=== PATIENT | female | born 1945 | race Caucasian/White ===

== ENCOUNTER 2017-07-25 09:15 | Day surgery (SDC) | payer OTHER ==
[~2017-07-25] VITALS: Ht 162.6 cm; Wt 72.6 kg
[2017-07-25] MEDS ORDERED: CEFAZOLIN SOD 1 GM in D5W 50 ML IV ONE (10:45)
[2017-07-25] MEDS ORDERED: MIDAZOLAM HCL 5 MG/5 ML VIAL IVP ONE (13:30)
[2017-07-25] MEDS ORDERED: LR 1,000 ML IV.SOLN IV ONE (13:30)
[2017-07-25] MEDS ORDERED: NS IRRIG SOLN 1000 ML IR ONE (13:30)
[2017-07-25] MEDS ORDERED: ISOSULFAN BLUE 5 ML VIAL (LYMPHAZURIN) INJ ONE (13:30)
[2017-07-25] MEDS ORDERED: ROCURONIUM BROMIDE 10 MG/ML (ZEMURON) IV ONE (13:30)
[2017-07-25] MEDS ORDERED: ONDANSETRON HCL 4 MG/2 ML VIAL IVP ONE (13:30)
[2017-07-25] MEDS ORDERED: fentaNYL CITRATE 250 MCG/5 ML AMP IV ONE (13:30)
[2017-07-25] MEDS ORDERED: SEVOFLURANE 15 MIN GAS INH ONE (13:30)
[2017-07-25] MEDS ORDERED: PROPOFOL 200MG/ 20ML VIAL (DIPRIVAN) IV ONE (13:30)
[2017-07-25] MEDS ORDERED: BUPIVACAINE /PF 0.25% 30 ML VIAL INJ ONE (13:30)
[2017-07-25] MEDS ORDERED: DEXAMETHASONE SOD PHOSPHATE 4 MG/ML VIAL IVP ONE (13:30)
[2017-07-25] MEDS ORDERED: CEFAZOLIN 2 GM IVPB PREMIX 50 ML IV ONE (13:30)
[2017-07-25] MEDS ORDERED: KETOROLAC TROMETHAMINE 15 MG VIAL IVP ONE (13:30)
[2017-07-25] MEDS ORDERED: LR 1,000 ML IV SCH (14:27)
[2017-07-25] MEDS ORDERED: MEPERIDINE HCL/PF 25 MG/ML DISP.SYRIN IVP PRN (14:30)
[2017-07-25] MEDS ORDERED: HYDROmorphone 2 MG/ML VIAL IVP PRN ×2 (14:30)
[2017-07-25] MEDS ORDERED: HYDROmorphone 1 MG INJ. 1 MG/ML AMPUL IVP PRN ×2 (14:30→15:00)
[2017-07-25] MEDS ORDERED: D5/0.45 NS 1,000 ML IV SCH (14:55)
[2017-07-25] MEDS ORDERED: HYDROcodone/ACETAMIN 5-325 MG TAB (NORCO/ VICODIN) PO PRN ×2 (15:00)
[2017-07-25 16:19] VITALS: BP_SYST 124
== END 2017-07-25 16:50 | disposition home or self-care (01) ==
LOC: SDS 09:15 → EDSTATUS 13:05 → SDS 16:50
PROVIDERS: ATTEND Colon & Rectal Surgery
DX: L57.0 Actinic keratosis (principal); D36.0 Benign neoplasm of lymph nodes; K21.9 Gastro-esophageal reflux disease without esophagitis; M19.90 Unspecified osteoarthritis, unspecified site; E03.9 Hypothyroidism, unspecified; E78.00 Pure hypercholesterolemia, unspecified; D64.9 Anemia, unspecified; C44.310 Basal cell carcinoma of skin of unspecified parts of face; F41.8 Other specified anxiety disorders; I12.9 Hypertensive chronic kidney disease with stage 1 through stage 4 chronic kidney disease, or unspecified chronic kidney disease; N18.3 Chronic kidney disease, stage 3 (moderate); E78.5 Hyperlipidemia, unspecified; I87.2 Venous insufficiency (chronic) (peripheral); Z68.31 Body mass index [BMI] 31.0-31.9, adult
CPT/HCPCS: 11406; 38525; 78195; 88305; A9541; J0690 ×2; J1100; J1885; J2250; J2405; J2704; J3010; J3490; J7060; J7120; Q9968